=== PATIENT | male | born 1965 | race Caucasian/White ===

== ENCOUNTER 2016-08-23 15:21 | Emergency (ER) | payer OTHER ==
[~2016-08-23] VITALS: Ht 167.6 cm; Wt 104.3 kg
[2016-08-23 16:23] LABS: BASOPHIL % 0.4 % (0-2); PLATELET COUNT 136 x10^3mcL (130-400); RED CELL DISTRIBUTION WIDTH 14.1 % (11.5-14.5)
[2016-08-23 16:26] LABS: CALCIUM 8.3 mg/dL (8.5-10.1); CARBON DIOXIDE 26.7 mmol/L (21-32); CHLORIDE SERUM 101 mmol/L (98-107); CREATININE SERUM 1.3 mg/dL (0.7-1.3); GFR1 > 60 mL/min; GLUCOSE SERUM 114 mg/dL (74-106); POTASSIUM SERUM 3.9 mmol/L (3.5-5.1); SODIUM SERUM 138 mmol/L (136-145)
[2016-08-23 16:31] LABS: ALBUMIN 3.6 g/dL (3.4-5.0); ALKALINE PHOSPHATASE 72 U/L (46-116); ALT/SGPT 28 U/L (16-63); AMYLASE 37 U/L (25-115); AST/SGOT 28 U/L (15-37); CHOLESTEROL 117 mg/dL (<200); HDL CHOLESTEROL 42 mg/dL (40-60); LIPASE 123 IU/L (73-393); MAGNESIUM 1.8 mg/dL (1.8-2.4); TOTAL PROTEIN, SERUM 7.7 g/dL (6.4-8.2)
[2016-08-23 16:49] LABS: microscopic required? NO
[2016-08-23 16:52] LABS: FREE T4 1.19 ng/dL (0.76-1.46); FREE THYROXINE INDEX 2.3 ug/dL (1.4-4.5); T3 TOTAL 0.98 ng/mL; T4(THYROXINE) 6.3 ug/dL (4.7-13.3)
[2016-08-23 17:05] LABS: urine erythrocyte NEGATIVE (NEGATIVE)
[2016-08-23 17:14] LABS: AMPHETAMINE QUAL UR POSITIVE (NEG <=1000)
[2016-08-23] MEDS ORDERED: L40I (17:22)
[2016-08-23] MEDS ORDERED: CARVEDILOL3.125 M1 (17:22)
[2016-08-23] MEDS ORDERED: CARVEDILOL6.25 M1 PO (17:45)
[2016-08-23] MEDS ORDERED: LISINOPRIL20 MG PO (17:47)
[2016-08-23] MEDS ORDERED: CLARITIN10 MG PO (17:48)
[2016-08-23] MEDS ORDERED: FUROSEMIDE20 MG PO (17:48)
[2016-08-23] MEDS ORDERED: SPIRONOLACTONE25 MG PO (17:48)
[2016-08-23 18:05] VITALS: BP 158/90
[2016-08-23 18:31] VITALS: BP 158/90
== END 2016-08-23 18:31 | disposition left against medical advice (07) ==
LOC: ED 15:21 → DU 17:18 → ED 17:18 → DU 18:31
PROVIDERS: Emergency Medicine
DX: I11.0 Hypertensive heart disease with heart failure (principal); I50.9 Heart failure, unspecified; K42.9 Umbilical hernia without obstruction or gangrene; I44.7 Left bundle-branch block, unspecified; E66.01 Morbid (severe) obesity due to excess calories; F17.200 Nicotine dependence, unspecified, uncomplicated; F10.20 Alcohol dependence, uncomplicated; Z71.6 Tobacco abuse counseling
CPT/HCPCS: 83880; 84439; 99406; J1940; J7030